=== PATIENT | female | born 2000 | race Caucasian/White ===

== ENCOUNTER 2023-05-24 08:44 | Day surgery (SDC) | payer BC ==
[2023-05-09 14:48] VITALS: BMI 25.7
[2023-05-24] MEDS ORDERED: MIDAZOLAM HCL 2 MG/2 ML SINGLE DOSE VIAL ONE ×2 (09:07→10:30)
[2023-05-24] MEDS ORDERED: EPINEPHrine/PF 1 MG/1 ML (1:1,000) AMPULE ONE (09:08)
[2023-05-24] MEDS ORDERED: VANCOMYCIN 1,000 MG VIAL (RESTRICTED TO ID ONLY) ONE (09:08)
[2023-05-24] MEDS ORDERED: BUPIVACAINE HCL/PF 2.5 MG/ML - 30 ML VIAL IJ ONE (09:09)
[2023-05-24] MEDS ORDERED: BUPIVACAINE HCL/PF 0.5% (5MG/ML) 10 ML VIAL ONE (09:12)
[2023-05-24] MEDS ORDERED: BUPIVACAINE LIPOSOME/PF (EXPAREL) 266 MG/20 ML VIAL ONE (09:48)
[2023-05-24] MEDS ORDERED: BUPIVACAINE HCL/PF 0.5% (5 MG/ML) 30 ML VIAL IJ ONE (09:48)
[2023-05-24] MEDS ORDERED: PROPOFOL 60 ML ONE (10:27)
[2023-05-24] MEDS ORDERED: ePHEDrine SULFATE 50 MG/1 ML AMPULE ONE (10:40)
[2023-05-24] MEDS ORDERED: PROPOFOL 20 ML ONE (11:46)
[2023-05-24] MEDS ORDERED: oxyCODONE HCL 5 MG TABLET PO PRN (12:56)
[2023-05-24] MEDS ORDERED: ONDANSETRON 4 MG/2 ML VIAL IVPUSH PRN (12:56)
[2023-05-24 14:33] VITALS: RESP 18
[2023-05-24 15:05] VITALS: BP 118/59; PULSE 71; TEMP 97.9
[2023-05-24] MEDS ORDERED: oxyCODONE HCL 5 MG TABLET ONE (15:47)
== END 2023-05-24 16:54 | disposition home or self-care (01) ==
LOC: FASU 08:44
PROVIDERS: ATTEND Orthopaedic Surgery
PROC: 0QSD04Z Reposition Right Patella with Internal Fixation Device, Open Approach (ICD-10-PCS; 2023-05-24)
PROC: 0SBC4ZZ Excision of Right Knee Joint, Percutaneous Endoscopic Approach (ICD-10-PCS; principal; 2023-05-24 10:52)
DX: M17.11 Unilateral primary osteoarthritis, right knee (principal); S83.241A Other tear of medial meniscus, current injury, right knee, initial encounter; X58.XXXA Exposure to other specified factors, initial encounter; Y93.9 Activity, unspecified; Y92.9 Unspecified place or not applicable
CPT/HCPCS: 73590-TC-RT-FY; 81025; 94760; C1713